=== PATIENT | female | born 1995 | race Caucasian/White ===

== ENCOUNTER 2018-08-17 08:14 | Emergency (ER) | payer OTHER, BC ==
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
[2018-08-17] MEDS ORDERED: KETOROLAC TROMETHAMINE 60 MG/2 ML SDV IM ONE (09:48)
[2018-08-17 09:50] VITALS: BP 111/56
== END 2018-08-17 09:58 | disposition home or self-care (01) ==
LOC: ER 08:14
DX: S00.83XA Contusion of other part of head, initial encounter (principal); R51 Headache; R09.89 Other specified symptoms and signs involving the circulatory and respiratory systems; L53.9 Erythematous condition, unspecified; V49.40XA Driver injured in collision with unspecified motor vehicles in traffic accident, initial encounter; F17.200 Nicotine dependence, unspecified, uncomplicated; F12.10 Cannabis abuse, uncomplicated
CPT/HCPCS: 99284; 96372; 71045; 70450; 72125; J1885